=== PATIENT | male | born 1940 | race Caucasian/White ===

== ENCOUNTER 2025-06-06 13:22 | Emergency (ER) | payer BC ==
[~2025-06-06] VITALS: Ht 172.7 cm; Wt 81.8 kg
[~2025-06-06 13:22] MED LIST: APIX2.5T PO; CARV-50 PO; DOCU-392 PO; DOXE10CA3 PO; EMPA25TA PO; FERR325T29 PO; GABA300T28; INSU100I12 SQ; LAN0.125T PO; LANTUS SQ; LOSA-415 PO; MAGN400C PO; MIDO5TAB4 PO; MULT-25 PO; PANT40TA54 PO; ROSU10TA98 PO; TAMS-55 PO
[2025-06-06] MEDS: HYDROcodone/acetaminophen 10/325mg tab PO ONE (15:03)
--- NOTE | 2025-06-06 15:36 | RADIOLOGY REPORT ---
CLINICAL INDICATION: ELBOW PAIN TECHNIQUE: 4 views of the left elbow were performed. DI ELBOW, COMPLETE (3VW MIN) Comparison: None FINDINGS/IMPRESSION: 1. No acute displaced fractures are identified about the left elbow. 2. Possible elevation of the anterior fat pad (sail sign), which may be due to occult fracture. If there is high clinical suspicion for occult fracture of the left elbow, consider follow-up noncontrast CT scan of the left elbow for further evaluation. 3. Mild ulnotrochlear osteoarthritis. 4. Triceps insertion enthesophyte on the olecranon process measures 17 mm length. 5. Calcifications adjacent to the medial and lateral humeral epicondyles consistent with chronic calcific epicondylosis.
[2025-06-06 16:46] LABS: MEAN PLATELET VOLUME 10.0 FL (7.4-10.4); RED CELL DISTRIBUTION WIDTH 15.2 % (11.5-14.5)
[2025-06-06 17:00] LABS: CREATININE 1.66 MG/DL (0.60-1.10); TOTAL CARBON DIOXIDE 29.5 MMOL/L (24-32); eCRCL 33 ML/MIN; eGFR 40 ML/MIN
[2025-06-06 17:11] VITALS: TEMP 97.4
[2025-06-06] MEDS: insulin regular, human 10 units/0.1 ml syringe SQ ONE (17:36)
--- NOTE | 2025-06-06 18:25 | VASCULAR REPORT ---
Procedure: VASC VL VENOUS 06/06/2025 05:44 PM Indication: Elbow pain Comparison: None TECHNIQUE: Duplex Doppler evaluation of the deep venous systems of lower extremities including the common femoral, femoral and popliteal veins utilizing color Doppler and spectral/pulsed waveform analysis techniques. FINDINGS: LEFT: Normal compressibility was demonstrated in the internal jugular vein, subclavian vein, axillary vein, basilic vein, brachial vein, and radial vein. Normal phasic flow and augmentation was present. IMPRESSION: 1. No sonographic evidence for deep venous thrombosis.
[2025-06-06] MEDS ORDERED: iohexol 300mg/ml 100ml inj. ONE (19:55)
--- NOTE | 2025-06-06 21:26 | RADIOLOGY REPORT ---
EXAM: CT CT UPPER EXTREMITIES W/ IV CONTRAST INDICATION: Multiple days of swelling in left elbow, significant pain reduced range of TECHNIQUE: Axial images of left elbow with contrast have been obtained along with coronal and sagittal reformatted images. All CT scans at this facility use dose modulation, iterative reconstruction, and/or weight based dosing when appropriate to reduce radiation dose to as low as reasonably achievable. COMPARISON: None FINDINGS: BONES: Calcification along the common extensor tendon origin and possible proximal radial collateral ligament. Small amount of spurring along the common flexor tendon origin. Small amount of spurring along the posterior aspect of the sublime tubercle. Triceps insertional enthesophyte. Small possible osseous erosion along the posterior superior aspect of the olecranon (sagittal image 34). No CT evidence of an acute fracture or aggressive osseous lesion. MUSCLES: Minimal surrounding subcutaneous adipose tissue edema along the posterior aspect of the elbow. JOINT SPACES: Trace possible elbow joint effusion. TENDONS/LIGAMENTS: Calcification along the common extensor tendon origin and possible proximal radial collateral ligament. OTHER: Differential consideration for gout versus pseudogout versus inflammatory arthropathy. IMPRESSION: 1. Calcification along the common extensor tendon origin and possible proximal radial collateral ligament. 2. Small amount of spurring along the common flexor tendon origin. 3. Small amount of spurring along the posterior aspect of the sublime tubercle. 4. Triceps insertional enthesophyte. 5. Small possible osseous erosion along the posterior superior aspect of the olecranon. 6. Differential consideration for gout versus pseudogout versus inflammatory arthropathy.
[2025-06-06 21:36] VITALS: BP 155/86; PULSE 70; O2SAT 98
--- NOTE | 2025-06-06 21:41 | Physician Documentation ---
History of Present Illness ~ Chief Complaint: Elbow pain Stated Complaint: LEFT ARM NUMBNESS Time Seen by MD: 14:50 Primary Medical Doctor: Donald Ruiz. Mode of Arrival: POV, Ambulatory HPI Patient is an 85-year-old male that presents to the emergency department for evaluation of left elbow pain times several days. Patient's family reports that he fell 2 months ago on that elbow was tender and sore but now the elbow has become very inflamed warm to the touch and patient refuses to move it. Family denies fever chills nausea vomiting diarrhea at this time, but are very concerned about the patient's arm and increased pain. Tetanus within 5 years: Yes Medication Reconciliation Allergies: Coded Allergies: No Known Allergies (Unverified , 06/06/25) Scheduled Apixaban (Eliquis), 1 TAB PO BID, (Reported) Carvedilol (Carvedilol), 1 TAB PO BID, (Reported) Digoxin (Digitek), 1 TAB PO DAILY, (Reported) Doxepin HCl (Doxepin HCl), 1 CAP PO HS, (Reported) Empagliflozin (Jardiance), 1 TAB PO DAILY, (Reported) Losartan Potassium* (Cozaar*), 50 MG PO BID, (Reported) Magnesium Oxide (Magnesium), 500 MG PO DAILY, (Reported) Midodrine HCl (Midodrine HCl), 1 TAB PO TID, (Reported) Multivitamin with Folic Acid (Thera Tablet), 1 EACH PO DAILY Pantoprazole Sodium (Pantoprazole Sodium), 1 TAB PO BID Rosuvastatin Calcium (Rosuvastatin Calcium), 1 TAB PO DAILY, (Reported) Tamsulosin Hcl* (Flomax*), 1 CAP PO DAILY, (Reported) Scheduled PRN Docusate Sodium (Docusate Sodium), 1 CAP PO BID PRN for constipation, (Reported) Miscellaneous Medications Ferrous Sulfate (Ferrous Sulfate), 1 TAB PO, (Reported) Gabapentin (Gabapentin ER), (Reported) Insulin Detemir (Levemir), 12 UNIT SQ, (Reported) Insulin Glargine,Hum.rec.anlog* (Lantus*), SQ, (Reported) Past Medical History Smoking Status: Never smoker Alcohol Use: None Drug Use: none Lives with: Spouse Lives In: Home Occupation: retired Review of Systems ROS As stated above in the HPI, otherwise all systems are reviewed and negative. Physical Exam Vital Signs: Temperature: 97.4, Source: Temporal, Heart Rate: 89, Respiratory Rate: 18, BP: 136/98, Pulse Oximetry: 97, Weight: 81.820 Oxygen Flow Rate: 0 Physical Exam VITALS: Reviewed and as above. GENERAL: Alert, no apparent distress. HEENT: Normocephalic, atraumatic, PERRL, EOMI, dry mucosa, no erythema RESPIRATORY: Lungs clear, normal breath sounds, no respiratory distress. CHEST: No accessory muscle use, no retractions CV: Regular rate, rhythm, no edema, no murmur, No: JVD GI: Soft, non-tender, bowels sounds present, no rebound, guarding, or rigidity BACK: No CVA tenderness, or swelling MUSCULOSKELETAL no deformities, edema and warmth noted in the left elbow significantly reduced range of motion very tender to the touch. SKIN: Warm and dry, no rash NEURO: Oriented x4, No motor or sensory deficit PSYCH: Normal mood and affect, no agitation Progress Results/Orders Results/Orders Orders - MARYANA WILKS [employer] Venous Us Study (06/06/25 17:27) Vl Venous (06/06/25 17:27) Ct Upper Extremities (06/06/25 19:23) Completed Orders - MARYANA WILKS [employer] Hydrocodone/Apap 10/325 ([place] 10/325mg (06/06/25 15:00) Cbc/Diff (06/06/25 15:37) CMP (06/06/25 15:37) Insulin Regular, Human (Humulin R 10 Uni (06/06/25 17:20) Vl Venous (06/06/25 17:27) Ct Upper Extremities (06/06/25 19:23) Iohexol 300mg/Ml 100ml Inj. (Omnipaque-3 (06/06/25 19:55) Medications Received in ER Medications (Trade) Dose Ordered Sig/Pieter Route PRN Reason Start Time Stop Time Status Last Admin Dose Admin ([place] 10/325mg tab) 1 tab ONCE ONCE PO 06/06/25 15:00 06/06/25 15:01 DC 06/06/25 15:03 1 TAB (HumuLIN R 10 units per 0.1 ML syringe) 10 units ONCE ONCE SQ 06/06/25 17:20 06/06/25 17:21 DC 06/06/25 17:36 10 UNITS Vital Signs 06/06/25 06/06/25 06/06/25 06/06/25 13:26 13:30 14:48 15:03 Temp 97.8 97.4 Pulse 85 75 Resp 16 18 16 18 B/P (MAP) 135/64 139/51 (80) Pulse Ox 99 99 O2 Flow Rate 0 06/06/25 17:11 Temp 97.4 Pulse 89 Resp 18 B/P (MAP) 136/98 (111) Pulse Ox 97 O2 Flow Rate 0 Laboratory Tests Test 06/06/25 16:29 06/06/25 20:33 White Blood Count 6.1 Red Blood Count 4.48 L Hemoglobin 13.4 L Hematocrit 41.1 L Mean Corpuscular Volume 91.8 Mean Corpuscular Hemoglobin 29.8 Mean Corpuscular Hemoglobin Concent 32.5 L Red Cell Distribution Width 15.2 H Platelet Count 132 L Mean Platelet Volume 10.0 Neutrophils (%) (Auto) 79.5 H Lymphocytes (%) (Auto) 7.2 L Monocytes (%) (Auto) 12.0 Eosinophils (%) (Auto) 1.1 Basophils (%) (Auto) 0.2 Neutrophils # (Auto) 4.8 Lymphocytes # (Auto) 0.4 L Monocytes # (Auto) 0.7 Eosinophils # (Auto) 0.1 Basophils # (Auto) 0.0 CBC Comment Sodium Level 133 L Potassium Level 4.5 Chloride Level 98 L Carbon Dioxide Level 29.5 Anion Gap 6 L Blood Urea Nitrogen 23 H Creatinine 1.66 H Estimated GFR/1.73 m2 40 BUN/Creatinine Ratio 13.9 Glucose Level 460 *H Calcium Level 8.4 L Total Bilirubin 0.6 Aspartate Amino Transf (AST/SGOT) 29 Alanine Aminotransferase (ALT/SGPT) 28 Alkaline Phosphatase 212 H Total Protein 8.3 H Albumin 3.1 L Globulin 5.2 H Albumin/Globulin Ratio 0.6 L Chemistry Comments Glucometer 386 H Medical Decision Making Additional information obtaine: other Findings MEDICAL DECISION MAKING Number of Diagnoses/Management Options: Moderate complexity. The patient presented with left elbow pain and inflammation several days after remote trauma. The differential diagnosis included septic arthritis, olecranon bursitis, cellulitis, occult fracture, and soft tissue injury. Advanced imaging was required to exclude septic arthritis and fracture. Amount and Complexity of Data Reviewed: Moderate complexity. Reviewed ultrasound (negative for deep vein thrombosis), CT scan (negative for septic joint, showed joint inflammation), and X-ray (negative for fracture). The imaging workup appropriately excluded fracture and septic arthritis while supporting a diagnosis of soft tissue infection. Risk of Complications/Morbidity/Mortality: Moderate risk. The patient is 85 years old, which is a risk factor for more severe infection. However, the patient lacks systemic signs of infection including fever, and imaging excluded septic arthritis. The clinical presentation of warmth, erythema, and tenderness following trauma is consistent with cellulitis. Assessment and Plan: Primary Diagnosis: Left elbow cellulitis The patient presents with localized inflammation, warmth, and pain of the left elbow following fall two months ago. Physical examination findings of warmth, erythema, and tenderness are consistent with cellulitis. The absence of fever and systemic signs indicates this is mild to moderate cellulitis that can be managed in the outpatient setting. CT imaging excluded septic arthritis, which was an important consideration given the patient's age and joint involvement. X-ray excluded fracture. The clinical picture is most consistent with cellulitis rather than septic olecranon bursitis, as the inflammation extends beyond the bursa and there is no discrete fluid collection described. Treatment Plan: Antibiotics: Oral antibiotic therapy targeting streptococci is indicated for typical cellulitis. The patient does not have risk factors for MRSA (no penetrating trauma, injection drug use, or purulent drainage), so coverage against streptococci and methicillin-sensitive Staphylococcus aureus is appropriate. Recommended duration is 5 days, with extension if clinical improvement has not occurred. Supportive Care: The affected arm will be placed in a sling for comfort and to facilitate elevation, which is recommended to reduce edema. Follow-up: The patient should follow up if symptoms worsen, fever develops, or there is no improvement within 5 days. Worsening symptoms despite antibiotics would warrant reassessment for deeper infection or alternative diagnosis. Disposition: Discharge to home with family. The patient does not meet criteria for hospitalization as there are no systemic signs of infection, altered mental status, or hemodynamic instability. Outpatient management is appropriate for mild cellulitis. General Diff Dx:Considerations: Include: Abrasion, Contusion, Fracture, Hematoma, Laceration, Malunion, Neurovascular injury, Open fracture, Sprain, Ulcer, Other Shoulder Diff Dx:Consideration: Include: AC separation, Adhesive capsulitis, Arthritis, Bicipital tendonitis, Calcific tendonitis, Cervical disc disease, Contusion, Dislocation, Fracture-humerus, Fracture-scapula, Fracture-clavicle, GB disease, Hematoma, Impingement syndrome, Myocardial infarction, Neurovascular injury, Open fracture-humerus, Open fracture-scapula, Open fracture-clavicle, Rotator cuff injury, SC dislocatoin, Sprain, Subacromial bursitis, Other Elbow Diff Dx:Considerations: Include: Abrasion, Arthritis, Contustion, DJD, F racture-humerus, Fracture-radial head, Fracture-radius, Fracture-ulna, Gout, Hematoma, Laceration, Neurovascular injury, Olecranon bursitis, Open fracture, Osteomyelitis, Radial head subluxation, Rheumatoid arthritis, Septic, Sprain, Ulcer, Other Wrist Diff Dx:Considerations: Include: Abrasion, Arthritis, DJD, Gout, Rheumatoid, Septic, Carpal tunnel snydrome, Contusion, Dislocation, Fracture- carpal, Fracture-radius, Fracture-ulna, Ganglion, Laceration, Neurovascular injury, Open fracture, Strain, Other Hand Diff Dx:Considerations: Include: Abrasion, Arthritis, Contusion, DJD, Felon, Fracture-carpal, Fracture-metacarpal, Fracture-phalynx, Fracture-radius, Fracture-ulna, Gout, Hematoma, Herpetic lalo, Laceration, Neurovascular injury, Open fracture, Paronychia, Rheumatoid arthritis, Septic, Sprain, Subungual hematoma, Tenosynovitis, Volar plate injury, Cellulitis, Malunion, Other Finger Diff Dx:Considerations: Include: Abrasion, Cellulitis, Contusion, Dislocation, Fracture, Hematoma, Laceration, Neurovascular injury, Open fracture, Subungual hematoma, Other Departure Disposition: 01 HOME / SELF CARE / HOMELESS Impression: Primary Impression: Cellulitis Discharge Instructions: Cellulitis, Adult, [id number] Referrals: NO PRIMARY CARE PROVIDER (PCP) Prescriptions Cephalexin*Monohydrate* (Keflex*) 500 Mg Capsule 1 CAP PO QID for 7 Days, #28 CAP Prov: MARYANA WILKS 06/06/25 Education Educated: Patient Educated regarding: diagnosis, treatment, need for follow up Signature Scribe Signature: A Attestation: Scribed for Maryana Wilks by IVORY Villegas . 06/06/25 21:43 MARYANA WILKS Jun 06, 2025 21:41
[2025-06-06] MEDS ORDERED: CEPH-585 PO (21:43)
[2025-06-06] MEDS: CefTRIAXone/D5W-Rocephin 1gm 50 ML IV ONE (22:09)
[2025-06-06 22:10] VITALS: RESP 16
[2025-06-06] MEDS: HYDROcodone/acetaminophen 5mg/325mg tablet PO ONE (22:10)
== END 2025-06-06 22:47 | disposition home or self-care (01) ==
LOC: ER 13:23
DX: L03.114 Cellulitis of left upper limb (principal); Z79.899 Other long term (current) drug therapy
CPT/HCPCS: 36415; 73080; 73201; 80053; 82948; 85025; 93971; 96365; 96372; 99285; A6258; J0696; J1815; Q9967; A6446